=== PATIENT | male | born 1980 | race Caucasian/White ===

== ENCOUNTER 2017-12-29 20:48 | Emergency (ER) | payer OTHER ==
[2017-12-29 21:09] VITALS: BP 111/85
--- NOTE | 2017-12-29 21:21 | ER Report ---
History and Physical Time Seen By MD: 21:16 HPI/ROS CHIEF COMPLAINT: wants to check into behavioral health. HISTORY OF PRESENT ILLNESS: This is a 37 year old male. He has a history of anxiety, depression, and has been having suicidal thoughts. He also started doing some superficial cutting tonight. He has been drinking today as well. Denies drug use. Has not been admitted here previously. Has some suicidal plans , but no active thoughts of following through on them. He has been having increased problems the last week, but did not want to go into the specifics with me. Denies other medical problems. REVIEW OF SYSTEMS: Respiratory: No cough, no dyspnea. Cardiovascular: No chest pain, no palpitations. Gastrointestinal: No vomiting, no abdominal pain. Genitourinary: No problems urinating. Musculoskeletal: No back pain. Allergies: Coded Allergies: banana (Verified Allergy, Severe, 12/29/17) Mouth peels avocado (Verified Allergy, Unknown, 12/29/17) latex (Verified Allergy, Unknown, 12/29/17) pineapple (Verified Allergy, Unknown, 12/29/17) Uncoded Allergies: plant protein (Allergy, Severe, ANAPHYLAXIS, 12/29/17) Reviewed Nurses Notes: Yes Constitutional Vital Sign - Last 24 Hours 12/29/17 12/29/17 12/29/17 12/29/17 21:00 21:02 21:03 21:09 Temp 98.6 Pulse 138 135 Resp 22 B/P (MAP) 115/93 (100) 115/93 111/85 (94) Pulse Ox 94 O2 Delivery Room Air 12/29/17 12/29/17 12/29/17 12/29/17 21:18 21:33 21:38 21:53 Pulse 121 124 112 125 Resp 14 14 12/29/17 12/29/17 12/29/17 12/29/17 22:08 22:13 22:58 23:13 Pulse 116 113 120 119 Resp 28 19 11 24 Pulse Ox 92 92 Physical Exam General Appearance: The patient is alert, some anxiety. No acute distress. Eyes: Pupils equal and round no injection. ENT: Normal oral mucosa. Moist mucous membranes. Neck: Neck is supple and non tender. Respiratory: Chest is non tender, lungs are clear to auscultation. Cardiac: regular rate and rhythm Musculoskeletal: Extremities have full range of motion. Skin: No rashes, has some cutting on his left arm, superficial. DIFFERENTIAL DIAGNOSIS: After history and physical exam differential diagnosis was considered for depression, anxiety, cutting and suicidal ideation. Medical Decision Making Data Points Result Diagram: 12/29/17212312/29/172123 Laboratory Hematology Test 12/29/17 21:24 12/29/17 22:56 Red Blood Count 5.83 M/uL (4.00-5.60) Mean Corpuscular Volume 90.0 fL (80.0-96.0) Mean Corpuscular Hemoglobin 31.7 pg (26.0-33.0) Mean Corpuscular Hemoglobin Concent 35.3 g/dL (32.0-36.0) Red Cell Distribution Width 12.8 % (11.5-14.5) Mean Platelet Volume 6.7 fL (7.2-11.1) Neutrophils (%) (Auto) 54.5 % (39.4-72.5) Lymphocytes (%) (Auto) 37.7 % (17.6-49.6) Monocytes (%) (Auto) 5.6 % (4.1-12.4) Eosinophils (%) (Auto) 0.9 % (0.4-6.7) Basophils (%) (Auto) 1.3 % (0.3-1.4) Nucleated RBC Relative Count (auto) 0.1 /100WBC Neutrophils # (Auto) 3.4 K/uL (2.0-7.4) Lymphocytes # (Auto) 2.3 K/uL (1.3-3.6) Monocytes # (Auto) 0.3 K/uL (0.3-1.0) Eosinophils # (Auto) 0.1 K/uL (0.0-0.5) Basophils # (Auto) 0.1 K/uL (0.0-0.1) Nucleated RBC Absolute Count (auto) 0.01 K/uL Sodium Level 146 mmol/L (137-145) Potassium Level 4.1 mmol/L (3.5-5.0) Chloride Level 107 mmol/L (98-107) Carbon Dioxide Level 23 mmol/L (22-30) Blood Urea Nitrogen 5 mg/dl (9-21) Creatinine 1.00 mg/dl (0.66-1.25) Glomerular Filtration Rate Calc > 60.0 Random Glucose 79 mg/dl (75-110) Calcium Level 9.5 mg/dl (8.4-10.2) Magnesium Level 2.0 mg/dl (1.7-2.2) Total Bilirubin 0.6 mg/dl (0.2-1.3) Aspartate Amino Transf (AST/SGOT) 28 U/L (0-35) Alanine Aminotransferase (ALT/SGPT) 41 U/L (0-56) Alkaline Phosphatase 54 U/L (0-126) Total Protein 8.3 gm/dl (6.3-8.2) Albumin 4.9 g/dl (3.5-5.0) Salicylates Level < 10 mg/L Salicylate Last Dose Date unk Acetaminophen Level < 10 ug/ml Serum Alcohol 182 mg/dl Urine Color Yellow Urine Clarity Clear Urine pH 5.0 pH (4.8-9.5) Urine Specific [place] 1.010 Urine Protein Negative mg/dL (NEGATIVE) Urine Glucose (UA) Negative mg/dL (NEGATIVE) Urine Ketones Negative mg/dL (NEGATIVE) Urine Blood Negative (NEGATIVE) Urine Nitrite Negative (NEGATIVE) Urine Bilirubin Negative (NEGATIVE) Urine Urobilinogen Negative mg/dL (0.2-1.9) Urine Leukocyte Esterase Negative (NEGATIVE) Urine RBC <1 /HPF (0-2/HPF) Urine WBC 1 /HPF (0-5/HPF) Urine Squamous Epithelial Cells None /LPF (</=FEW) Urine Bacteria Negative /HPF (NONE-FEW) Urine Mucus None /HPF (NONE-FEW) Urine Opiates Screen Negative Urine Barbiturates Screen Negative Ur Tricyclic Antidepressants Screen Negative Urine Phencyclidine Screen Negative Urine Amphetamines Screen Negative Urine Benzodiazepines Screen Negative Urine Cocaine Screen Negative Urine Cannabinoids Screen Negative Chemistry Test 12/29/17 21:24 12/29/17 22:56 White Blood Count 6.2 k/uL (4.5-11.0) Red Blood Count 5.83 M/uL (4.00-5.60) Hemoglobin 18.5 g/dL (14.0-18.0) Hematocrit 52.5 % (42.0-52.0) Mean Corpuscular Volume 90.0 fL (80.0-96.0) Mean Corpuscular Hemoglobin 31.7 pg (26.0-33.0) Mean Corpuscular Hemoglobin Concent 35.3 g/dL (32.0-36.0) Red Cell Distribution Width 12.8 % (11.5-14.5) Platelet Count 314 K/uL (150-450) Mean Platelet Volume 6.7 fL (7.2-11.1) Neutrophils (%) (Auto) 54.5 % (39.4-72.5) Lymphocytes (%) (Auto) 37.7 % (17.6-49.6) Monocytes (%) (Auto) 5.6 % (4.1-12.4) Eosinophils (%) (Auto) 0.9 % (0.4-6.7) Basophils (%) (Auto) 1.3 % (0.3-1.4) Nucleated RBC Relative Count (auto) 0.1 /100WBC Neutrophils # (Auto) 3.4 K/uL (2.0-7.4) Lymphocytes # (Auto) 2.3 K/uL (1.3-3.6) Monocytes # (Auto) 0.3 K/uL (0.3-1.0) Eosinophils # (Auto) 0.1 K/uL (0.0-0.5) Basophils # (Auto) 0.1 K/uL (0.0-0.1) Nucleated RBC Absolute Count (auto) 0.01 K/uL Glomerular Filtration Rate Calc > 60.0 Calcium Level 9.5 mg/dl (8.4-10.2) Magnesium Level 2.0 mg/dl (1.7-2.2) Total Bilirubin 0.6 mg/dl (0.2-1.3) Aspartate Amino Transf (AST/SGOT) 28 U/L (0-35) Alanine Aminotransferase (ALT/SGPT) 41 U/L (0-56) Alkaline Phosphatase 54 U/L (0-126) Total Protein 8.3 gm/dl (6.3-8.2) Albumin 4.9 g/dl (3.5-5.0) Salicylates Level < 10 mg/L Salicylate Last Dose Date unk Acetaminophen Level < 10 ug/ml Serum Alcohol 182 mg/dl Urine Color Yellow Urine Clarity Clear Urine pH 5.0 pH (4.8-9.5) Urine Specific [place] 1.010 Urine Protein Negative mg/dL (NEGATIVE) Urine Glucose (UA) Negative mg/dL (NEGATIVE) Urine Ketones Negative mg/dL (NEGATIVE) Urine Blood Negative (NEGATIVE) Urine Nitrite Negative (NEGATIVE) Urine Bilirubin Negative (NEGATIVE) Urine Urobilinogen Negative mg/dL (0.2-1.9) Urine Leukocyte Esterase Negative (NEGATIVE) Urine RBC <1 /HPF (0-2/HPF) Urine WBC 1 /HPF (0-5/HPF) Urine Squamous Epithelial Cells None /LPF (</=FEW) Urine Bacteria Negative /HPF (NONE-FEW) Urine Mucus None /HPF (NONE-FEW) Urine Opiates Screen Negative Urine Barbiturates Screen Negative Ur Tricyclic Antidepressants Screen Negative Urine Phencyclidine Screen Negative Urine Amphetamines Screen Negative Urine Benzodiazepines Screen Negative Urine Cocaine Screen Negative Urine Cannabinoids Screen Negative Toxicology Test 12/29/17 21:24 12/29/17 22:56 Salicylates Level < 10 mg/L Salicylate Last Dose Date unk Acetaminophen Level < 10 ug/ml Serum Alcohol 182 mg/dl Urine Opiates Screen Negative Urine Barbiturates Screen Negative Ur Tricyclic Antidepressants Screen Negative Urine Phencyclidine Screen Negative Urine Amphetamines Screen Negative Urine Benzodiazepines Screen Negative Urine Cocaine Screen Negative Urine Cannabinoids Screen Negative Urinalysis Test 12/29/17 22:56 Urine Color Yellow Urine Clarity Clear Urine pH 5.0 pH (4.8-9.5) Urine Specific [place] 1.010 Urine Protein Negative mg/dL (NEGATIVE) Urine Glucose (UA) Negative mg/dL (NEGATIVE) Urine Ketones Negative mg/dL (NEGATIVE) Urine Blood Negative (NEGATIVE) Urine Nitrite Negative (NEGATIVE) Urine Bilirubin Negative (NEGATIVE) Urine Urobilinogen Negative mg/dL (0.2-1.9) Urine Leukocyte Esterase Negative (NEGATIVE) Urine RBC <1 /HPF (0-2/HPF) Urine WBC 1 /HPF (0-5/HPF) Urine Squamous Epithelial Cells None /LPF (</=FEW) Urine Bacteria Negative /HPF (NONE-FEW) Urine Mucus None /HPF (NONE-FEW) ED Course/Re-evaluation ED Course Discussed with Oralia Kovacs, and will admit to behavioral health. Decision to Disposition Date: Dec 29, 2017 Decision to Disposition Time: 23:40 Depart Departure Latest Vital Signs Vital Signs Date Time Temp Pulse Resp B/P (MAP) Pulse Ox O2 Delivery O2 Flow Rate FiO2 12/29/17 23:13 119 24 92 12/29/17 21:09 111/85 (94) 12/29/17 21:02 98.6 Room Air Impression: Primary Impression: Suicidal ideation Condition: Condition Unchanged Disposition: XFER TO [facility] GROVER ZAMORANO MD Dec 29, 2017 21:21
[2017-12-29 21:32] LABS: PLATELET COUNT, AUTOMATED 314 K/uL (150-450)
[2017-12-29] MEDS ORDERED: KETOROLAC TROM 10MG TAB PO ONE (23:40)
[2017-12-30] MEDS ORDERED: ALPR-448 PO (00:17)
[2017-12-30] MEDS ORDERED: METH36TA2 PO (00:17)
[2017-12-30] MEDS ORDERED: [UNRECOGNIZED DRUG - CODE] PO (16:52)
[2017-12-30] MEDS ORDERED: ALPR-460 PO (16:55)
== END 2017-12-30 00:18 ==
LOC: ER 20:54
DX: R45.851 Suicidal ideations (principal); F32.9 Major depressive disorder, single episode, unspecified; F41.9 Anxiety disorder, unspecified
CPT/HCPCS: 36415; 80305; 80320; 80329; 81001; 82040; 82247; 82310; 82374; 82435; 82565; 82947; 83735; 84075; 84132; 84155; 84295; 84443; 84450; 84460; 84520; 85025; 99285

== ENCOUNTER 2017-12-30 | Inpatient (IN) | payer OTHER ==
[~2017-12-30] VITALS: Ht 198.1 cm; Wt 90.7 kg
[2017-12-30] MEDS ORDERED: METH36TA2 PO (00:17)
[2017-12-30] MEDS ORDERED: ALPR-448 PO (00:17)
[2017-12-30 01:00] VITALS: BP 122/84
[2017-12-30] MEDS ORDERED: MAG HYD/AL HYD/SIMETH 30ML UDC PO PRN (01:15)
[2017-12-30] MEDS ORDERED: ACETAMINOPHEN 325 MG TAB PO PRN (01:15)
[2017-12-30] MEDS ORDERED: hydrOXYzine PAMOATE 25 MG CAP PO PRN ×2 (01:15→09:55)
[2017-12-30 11:15] VITALS: BP 138/93
[2017-12-30 13:55] VITALS: BP 122/94
[2017-12-30] MEDS ORDERED: [UNRECOGNIZED DRUG - CODE] PO (16:52)
[2017-12-30] MEDS ORDERED: ALPR-460 PO (16:55)
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
--- NOTE | 2017-12-30 18:47 | DISCHARGE SUMMARY ---
DATE OF ADMISSION: December 29, 2017 DATE OF AGAINST MEDICAL ADVICE DISCHARGE: December 30, 2017 FINAL DIAGNOSES PER DSM-V 1. Generalized anxiety disorder. 2. Alcohol use disorder, moderate to severe. 3. Obstructive sleep apnea per history. 4. Rule out obsessive-compulsive disorder. 5. Rule out posttraumatic stress disorder. 6. Borderline personality traits. REASON FOR ADMISSION AND BRIEF HISTORY This is a 37-year-old male who presented to the Emergency Room having been brought in by a friend for worsening depression, anxiety, and suicidal ideation. He reports self-injurious behavior in the form of superficial cutting to his left forearm prior to admission as well as drinking alcohol. The patient was reporting a lengthy history of anxiety, depression, and previous history of attention deficit hyperactivity disorder. He has been seeing an outpatient provider, Colette Okeefe, and an individual therapist at [facility]. He had requested voluntary admission for further evaluation and treatment, although reporting that during his hospitalization, he was becoming more anxious. He reports that he has many tasks to complete at home and is requesting an against medical advice discharge. He is agreeable to following up with his outpatient provider with an appointment on upcoming Monday, January 03, 2018. He is considering alternate medication providers and is aware of outpatient resources for medical management. He is denying suicidal or homicidal ideation at time of discharge, although has not given adequate time for hospitalization benefit. The patient will be discharged against medical advice. PHYSICAL EXAMINATION Please see emergency room notes for physical exam. Vital signs at time of admission included temperature of 97.8, pulse of 100, respiratory rate 16, blood pressure 122/84, and pulse oximetry 94% on room air. Vital signs at time of discharge include temperature of 99.2, pulse of 70, blood pressure 122/94, and pulse oximetry 94%. LABORATORY DATA CBC within normal limits. RBCs elevated, 5.83. Hemoglobin 18.5. Hematocrit 52.5. MPV 6.7. Chemistry panel within normal limits. Sodium slightly elevated , 146. BUN low at 5. Total protein elevated at 8.5. Thyroid stimulating hormone is pending. Urine screen within normal limits. Toxicology including admission serum alcohol level of 182. Salicylate and acetaminophen levels less than 10. Urine screen negative for opiates, barbiturates, tricyclics, phencyclidines, amphetamines, benzodiazepine, cocaine, and cannabinoids. MENTAL STATUS EXAMINATION GENERAL APPEARANCE, BEHAVIOR, AND ATTITUDE: This is an anxious, although fairly cooperative patient at time of against medical advice discharge interview. He is denying benefit from hospitalization and is requesting to leave against medical advice. SPEECH: Slightly pressured. Regular tone and volume. MOOD: Irritable. AFFECT: Mood congruent. THOUGHT PROCESSES: Logical, goal directed. No loose associations. No flight of ideas. THOUGHT CONTENT: Free of auditory or visual hallucinations, ideas of reference , thought broadcasting, delusions, obsessions, or compulsions. The patient denies suicidal or homicidal ideation. SENSORIUM: Clear. COGNITION: Alert and oriented to person, place, time, and situation. MEMORY: Immediate, recent, and remote estimated intact. INTELLIGENCE: Average based on interview. INSIGHT AND JUDGMENT: Considered limited, requesting against medical advice discharge. TREATMENT The patient participated in individual and group therapy. Medication options were reviewed. He was administered hydroxyzine 25 mg targeting his anxiety and when taken in the evening assisted with his sleep. He is requesting against medical advice discharge with outpatient appointment set up for January 03, 2018, with [facility]. He is encouraged to follow up with medication management provider and individual psychotherapist. He is given the crisis line should symptoms worsening or for suicidal ideation. He is to abstain from alcohol and other illicit substances. He is to take his outpatient medications as prescribed. Outpatient medications will be continued including his alprazolam 0.5 mg p.o. p.r.n. and methylphenidate 36 mg p.o. q. day. These prescriptions he had prior to admission. No prescriptions will be written at time of against medical advice discharge. He is to return to the Emergency Room for worsening symptoms or suicidal or homicidal ideation. The patient again is requesting against medical advice discharge. He is encouraged to return to the facility for worsening symptoms. FRNACES
== END 2017-12-30 17:30 | disposition home or self-care (01) | DRG 880 ==
LOC: BHS
PROVIDERS: ADMIT Nurse Practitioner Psychiatric/Mental Health; ATTEND Nurse Practitioner Psychiatric/Mental Health
DX: F41.1 Generalized anxiety disorder (principal); R45.851 Suicidal ideations; G47.33 Obstructive sleep apnea (adult) (pediatric); F60.3 Borderline personality disorder; F32.9 Major depressive disorder, single episode, unspecified; F10.20 Alcohol dependence, uncomplicated; Y90.6 Blood alcohol level of 120-199 mg/100 ml; F42.9 Obsessive-compulsive disorder, unspecified; F43.10 Post-traumatic stress disorder, unspecified; Z91.5 Personal history of self-harm; Z91.19 Patient's noncompliance with other medical treatment and regimen
CPT/HCPCS: Q0177

== ENCOUNTER 2018-02-05 04:46 | Emergency (ER) | payer OTHER ==
[~2018-02-05 04:46] MED LIST: ALPR-448 PO; ALPR-460 PO; METH36TA2 PO; [UNRECOGNIZED DRUG - CODE] PO
--- NOTE | 2018-02-05 04:49 | ER Report ---
History and Physical Time Seen By MD: 04:43 HPI/ROS CHIEF COMPLAINT: Self-injurious behavior HISTORY OF PRESENT ILLNESS: 37-year-old male with obsessive-compulsive disorder. He states when he gets anxious. He does self cutting and self scratching. Tonight he became quite anxious. He has superficial scrapes and cuts to both of his forearms to his face and his chest. They are fairly significant. She was calling friends and requesting to be taken over to [place] to be admitted to behavioral health over there. Patient apparently works here in the [facility] and is involved in [employer] evaluations. Patient states he did consume alcohol tonight but denies drugs. Patient has a previous [facility] admission from 12/29/17 with a similar presentation. He apparently signed out AMA after 16 hours. Patient denies suicidal ideation to this provider. He is placed on emergency care home by police and was brought in. REVIEW OF SYSTEMS: Respiratory: No cough, no dyspnea. Cardiovascular: No chest pain, no palpitations. Gastrointestinal: No vomiting, no abdominal pain. Musculoskeletal: No back pain. Allergies: Coded Allergies: banana (Verified Allergy, Severe, 12/30/17) sluffing of epithelium in mouth shellfish derived (Verified Allergy, Severe, ANAPHYLAXIS, 12/30/17) pineapple (Verified Allergy, Mild, 12/30/17) sluffing of epithelium in mouth avocado (Verified Allergy, Unknown, 12/29/17) latex (Verified Allergy, Unknown, 12/29/17) Uncoded Allergies: plant protein (Allergy, Severe, ANAPHYLAXIS, 12/29/17) Walnuts (Allergy, Mild, 12/30/17) sluffing of epithelium in mouth Home Meds Reported Medications Lisdexamfetamine Dimesylate (VYVANSE) 20 Mg Capsule, 20 MG PO QDAY Y for SEE COMMENT, CAPSULE 02/05/18 Alprazolam 0.5 Mg Tab (ALPRAZOLAM 0.5 MG TAB) 0.5 Mg Tablet, 0.25-0.5 MG PO PRN , TAB 12/30/17 Discontinued Reported Medications Methylphenidate Hcl (METHYLPHENIDATE ER) 36 Mg Tab.er.24, 36 MG PO QDAY 12/30/17 Reviewed Nurses Notes: Yes Old Medical Records Reviewed: Yes Hx Smoking: Yes Smoking Status: Current: Every Day Smoker Exposure to Second Hand Smoke?: Yes Hx Alcohol Use: Yes Constitutional Vital Sign - Last 24 Hours 02/05/18 02/05/18 04:47 06:44 Temp 98.8 Pulse 130 129 Resp 24 20 B/P (MAP) 134/112 134/104 (114) Pulse Ox 94 92 O2 Delivery Room Air Room Air Physical Exam General Appearance: The patient is alert, has no immediate need for airway protection and no current signs of toxicity. Vital signs stable, mild tachycardia, afebrile HEENT: Pupils equal and round no injection. TMs normal, oropharynx without trauma, there are gross facial scratches from the top of the head down over the nose and to the right cheek and chin. Respiratory: Chest is non tender, lungs are clear to auscultation. There are gross scratches to the chest wall. Cardiac: regular rate and rhythm Gastrointestinal: Abdomen is soft and non tender, no masses, bowel sounds normal. Musculoskeletal: Neck: Neck is supple and non tender. Extremities have full range of motion and are non tender. There are scratches to both forearms Skin: No rashes or lesions. DIFFERENTIAL DIAGNOSIS: After history and physical exam differential diagnosis was considered for depression including functional and major depression, situational depression, medication side effect, drugs, anxiety and panic attack , self injurious behavior and alcohol abuse. Date of Report: Feb 05, 2018 Examiner: Dr. Jeff Canela Patient Detained By: Law Enforcement Date Patient Detained: Feb 05, 2018 Time Patient Detained: 04:50 Date Group Home Expires: Feb 08, 2018 Time Group Home Expires: 04:50 Legal Status: Police Hold: No Legal Status: Relationship: Single Legal Status: Residence: [facility] Resident Referral Source: patient has been receiving mental health counseling through the [facility] Data Provided By: Patient, Law Enforcement, Other Source Chief Complaint: Depression with suicidal ideation, self cutting HPI/ROS: 37-year-old male brought in by police on an emergency care home after he said pictures of his self-injurious behavior. He has superficial cuts and scratches over his face, arms and chest. Patient states that he gets acute anxiety and then has self-injurious been a beer. He's been cutting since age 13. He has a proximally 3-4 episodes per year. Most of the history and information is obtained from a previous admission approximate 4 weeks ago on 12/29/17 as a voluntary admit to behavioral health service. Patient is reluctant to disclose any further information tonight. Patient was expressing suicidal ideation to the police officers. On their arrival Emergency Medical/Psych Tx: Patient was medicated with Zyprexa 10 mg by mouth and Ativan 2 mg by mouth his tetanus status was verified is up-to-date. His history Current Dangerous Risk Assess: Current Suicide Ideation Current Risk Summary: Patient is very high risk the emergency care home will be upheld. Past Dangerous Risk Assess: Suicide Ideation-last 6mo Medical Decision Making Data Points Result Diagram: 02/05/18 0543 02/05/18 0543 Laboratory Hematology Test 02/05/18 05:43 Red Blood Count 6.14 M/uL (4.00-5.60) Mean Corpuscular Volume 89.9 fL (80.0-96.0) Mean Corpuscular Hemoglobin 31.6 pg (26.0-33.0) Mean Corpuscular Hemoglobin Concent 35.2 g/dL (32.0-36.0) Red Cell Distribution Width 13.3 % (11.5-14.5) Mean Platelet Volume 7.0 fL (7.2-11.1) Neutrophils (%) (Auto) 65.3 % (39.4-72.5) Lymphocytes (%) (Auto) 26.8 % (17.6-49.6) Monocytes (%) (Auto) 5.5 % (4.1-12.4) Eosinophils (%) (Auto) 1.6 % (0.4-6.7) Basophils (%) (Auto) 0.8 % (0.3-1.4) Nucleated RBC Relative Count (auto) 0.0 /100WBC Neutrophils # (Auto) 5.4 K/uL (2.0-7.4) Lymphocytes # (Auto) 2.2 K/uL (1.3-3.6) Monocytes # (Auto) 0.5 K/uL (0.3-1.0) Eosinophils # (Auto) 0.1 K/uL (0.0-0.5) Basophils # (Auto) 0.1 K/uL (0.0-0.1) Nucleated RBC Absolute Count (auto) 0.00 K/uL Urine Color Straw Urine Clarity Clear Urine pH 6.0 pH (4.8-9.5) Urine Specific [place] 1.004 Urine Protein Negative mg/dL (NEGATIVE) Urine Glucose (UA) Negative mg/dL (NEGATIVE) Urine Ketones Negative mg/dL (NEGATIVE) Urine Blood Negative (NEGATIVE) Urine Nitrite Negative (NEGATIVE) Urine Bilirubin Negative (NEGATIVE) Urine Urobilinogen Negative mg/dL (0.2-1.9) Urine Leukocyte Esterase Trace (NEGATIVE) Urine RBC 1 /HPF (0-2/HPF) Urine WBC 2 /HPF (0-5/HPF) Urine Squamous Epithelial Cells None /LPF (</=FEW) Urine Bacteria Negative /HPF (NONE-FEW) Urine Mucus None /HPF (NONE-FEW) Sodium Level 144 mmol/L (137-145) Potassium Level 3.7 mmol/L (3.5-5.0) Chloride Level 102 mmol/L (98-107) Carbon Dioxide Level 22 mmol/L (22-30) Blood Urea Nitrogen 6 mg/dl (9-21) Creatinine 0.90 mg/dl (0.66-1.25) Glomerular Filtration Rate Calc > 60.0 Random Glucose 96 mg/dl (75-110) Calcium Level 9.1 mg/dl (8.4-10.2) Magnesium Level 2.1 mg/dl (1.7-2.2) Total Bilirubin 0.5 mg/dl (0.2-1.3) Aspartate Amino Transf (AST/SGOT) 30 U/L (0-35) Alanine Aminotransferase (ALT/SGPT) 42 U/L (0-56) Alkaline Phosphatase 76 U/L (0-126) Total Protein 8.7 gm/dl (6.3-8.2) Albumin 5.1 g/dl (3.5-5.0) Thyroid Stimulating Hormone (TSH) 2.13 uIU/ml (0.46-4.68) Salicylates Level < 10 mg/L Salicylate Last Dose Date unk Urine Opiates Screen Negative Acetaminophen Level < 10 ug/ml Urine Barbiturates Screen Negative Ur Tricyclic Antidepressants Screen Negative Urine Phencyclidine Screen Negative Urine Amphetamines Screen Negative Urine Benzodiazepines Screen Negative Urine Cocaine Screen Negative Urine Cannabinoids Screen Negative Serum Alcohol 209 mg/dl Chemistry Test 02/05/18 05:43 White Blood Count 8.2 k/uL (4.5-11.0) Red Blood Count 6.14 M/uL (4.00-5.60) Hemoglobin 19.4 g/dL (14.0-18.0) Hematocrit 55.2 % (42.0-52.0) Mean Corpuscular Volume 89.9 fL (80.0-96.0) Mean Corpuscular Hemoglobin 31.6 pg (26.0-33.0) Mean Corpuscular Hemoglobin Concent 35.2 g/dL (32.0-36.0) Red Cell Distribution Width 13.3 % (11.5-14.5) Platelet Count 343 K/uL (150-450) Mean Platelet Volume 7.0 fL (7.2-11.1) Neutrophils (%) (Auto) 65.3 % (39.4-72.5) Lymphocytes (%) (Auto) 26.8 % (17.6-49.6) Monocytes (%) (Auto) 5.5 % (4.1-12.4) Eosinophils (%) (Auto) 1.6 % (0.4-6.7) Basophils (%) (Auto) 0.8 % (0.3-1.4) Nucleated RBC Relative Count (auto) 0.0 /100WBC Neutrophils # (Auto) 5.4 K/uL (2.0-7.4) Lymphocytes # (Auto) 2.2 K/uL (1.3-3.6) Monocytes # (Auto) 0.5 K/uL (0.3-1.0) Eosinophils # (Auto) 0.1 K/uL (0.0-0.5) Basophils # (Auto) 0.1 K/uL (0.0-0.1) Nucleated RBC Absolute Count (auto) 0.00 K/uL Urine Color Straw Urine Clarity Clear Urine pH 6.0 pH (4.8-9.5) Urine Specific [place] 1.004 Urine Protein Negative mg/dL (NEGATIVE) Urine Glucose (UA) Negative mg/dL (NEGATIVE) Urine Ketones Negative mg/dL (NEGATIVE) Urine Blood Negative (NEGATIVE) Urine Nitrite Negative (NEGATIVE) Urine Bilirubin Negative (NEGATIVE) Urine Urobilinogen Negative mg/dL (0.2-1.9) Urine Leukocyte Esterase Trace (NEGATIVE) Urine RBC 1 /HPF (0-2/HPF) Urine WBC 2 /HPF (0-5/HPF) Urine Squamous Epithelial Cells None /LPF (</=FEW) Urine Bacteria Negative /HPF (NONE-FEW) Urine Mucus None /HPF (NONE-FEW) Glomerular Filtration Rate Calc > 60.0 Calcium Level 9.1 mg/dl (8.4-10.2) Magnesium Level 2.1 mg/dl (1.7-2.2) Total Bilirubin 0.5 mg/dl (0.2-1.3) Aspartate Amino Transf (AST/SGOT) 30 U/L (0-35) Alanine Aminotransferase (ALT/SGPT) 42 U/L (0-56) Alkaline Phosphatase 76 U/L (0-126) Total Protein 8.7 gm/dl (6.3-8.2) Albumin 5.1 g/dl (3.5-5.0) Thyroid Stimulating Hormone (TSH) 2.13 uIU/ml (0.46-4.68) Salicylates Level < 10 mg/L Salicylate Last Dose Date unk Urine Opiates Screen Negative Acetaminophen Level < 10 ug/ml Urine Barbiturates Screen Negative Ur Tricyclic Antidepressants Screen Negative Urine Phencyclidine Screen Negative Urine Amphetamines Screen Negative Urine Benzodiazepines Screen Negative Urine Cocaine Screen Negative Urine Cannabinoids Screen Negative Serum Alcohol 209 mg/dl Toxicology Test 02/05/18 05:43 Salicylates Level < 10 mg/L Salicylate Last Dose Date unk Urine Opiates Screen Negative Acetaminophen Level < 10 ug/ml Urine Barbiturates Screen Negative Ur Tricyclic Antidepressants Screen Negative Urine Phencyclidine Screen Negative Urine Amphetamines Screen Negative Urine Benzodiazepines Screen Negative Urine Cocaine Screen Negative Urine Cannabinoids Screen Negative Serum Alcohol 209 mg/dl Urinalysis Test 02/05/18 05:43 Urine Color Straw Urine Clarity Clear Urine pH 6.0 pH (4.8-9.5) Urine Specific [place] 1.004 Urine Protein Negative mg/dL (NEGATIVE) Urine Glucose (UA) Negative mg/dL (NEGATIVE) Urine Ketones Negative mg/dL (NEGATIVE) Urine Blood Negative (NEGATIVE) Urine Nitrite Negative (NEGATIVE) Urine Bilirubin Negative (NEGATIVE) Urine Urobilinogen Negative mg/dL (0.2-1.9) Urine Leukocyte Esterase Trace (NEGATIVE) Urine RBC 1 /HPF (0-2/HPF) Urine WBC 2 /HPF (0-5/HPF) Urine Squamous Epithelial Cells None /LPF (</=FEW) Urine Bacteria Negative /HPF (NONE-FEW) Urine Mucus None /HPF (NONE-FEW) ED Course/Re-evaluation ED Course Patient was admitted to an examination room. H&P was done. The differential diagnoses was considered. Patient's on an emergency care home. Patient is is evaluated with diagnostic studies. He is reluctant to undergo with a diagnostic studies since he is unable to afford the supplemental laboratory studies. He was admitted approximately 4 weeks ago as a voluntary admission and he states he did not consent to the panel of diagnostic test that were performed. He states he is unable to afford the bill. He is requesting that only a CBC and chemistry be performed. He is specifically objecting to Tylenol , salicylate and a drug tox screen being performed. He is financially concerned that he will not be able to pay for his evaluation. He would like it noted in his record that he is objecting to these tests being performed. I explained that this is a standard psychiatric workup. He needs to be done to rule out potential overdose that could be life-threatening. Patient was quite agitated and anxious. He was medicated with Zyprexa 10 mg by mouth and Ativan 2 mg by mouth. 02/05/2018 6:23:15 am case was discussed with Dr. Clara Gallegos psychiatrist on- call, who accepts the patient for admission. Decision to Disposition Date: Feb 05, 2018 Decision to Disposition Time: 05:02 Depart Departure Latest Vital Signs Vital Signs Date Time Temp Pulse Resp B/P (MAP) Pulse Ox O2 Delivery O2 Flow Rate FiO2 02/05/18 06:44 129 20 134/104 (114) 92 Room Air 02/05/18 04:47 98.8 Impression: Primary Impression: Depression with suicidal ideation Additional Impressions: Self-injurious behavior Alcohol intoxication Anxiety Condition: Improved Disposition: XFER TO [facility] Problem Qualifiers Additional Impressions: Alcohol intoxication Complication of substance-induced condition: uncomplicated Qualified Codes: F10.920 - Alcohol use, unspecified with intoxication, uncomplicated JEFF CANELA DO Feb 05, 2018 04:49
[2018-02-05] MEDS ORDERED: LORazepam 1 MG TAB PO ONE (04:55)
[2018-02-05] MEDS: OLANZapine ZYDIS ODT 5MG TABDP PO ONE ×2 (04:55→04:58)
[2018-02-05 05:53] LABS: PLATELET COUNT, AUTOMATED 343 K/uL (150-450)
[2018-02-05 06:44] VITALS: BP 134/104
[2018-02-05] MEDS ORDERED: LISD20CA4 PO (09:21)
[2018-02-06] MEDS ORDERED: BUPR-472 PO (12:54)
[2018-02-06] MEDS ORDERED: LISD20CA4 PO (12:55)
[2018-02-06] MEDS ORDERED: CLON0.5T66 PO (12:55)
== END 2018-02-05 07:00 ==
LOC: ER 04:55
DX: F41.9 Anxiety disorder, unspecified (principal); F32.9 Major depressive disorder, single episode, unspecified; R45.851 Suicidal ideations; F10.920 Alcohol use, unspecified with intoxication, uncomplicated; X83.8XXA Intentional self-harm by other specified means, initial encounter; R00.0 Tachycardia, unspecified; F17.200 Nicotine dependence, unspecified, uncomplicated; F42.9 Obsessive-compulsive disorder, unspecified
CPT/HCPCS: 36415; 80305; 80320; 80329; 81001; 82040; 82247; 82310; 82374; 82435; 82565; 82947; 83735; 84075; 84132; 84155; 84295; 84443; 84450; 84460; 84520; 85025; 99285

== ENCOUNTER 2018-02-05 06:22 | Inpatient (IN) | payer OTHER ==
[~2018-02-05] VITALS: Ht 175.3 cm; Wt 88.0 kg
[2018-02-05 07:30] VITALS: BP 114/98
[2018-02-05] MEDS ORDERED: ACETAMINOPHEN 325 MG TAB PO PRN (08:45)
[2018-02-05] MEDS ORDERED: MAG HYD/AL HYD/SIMETH 30ML UDC PO PRN (08:45)
[2018-02-05] MEDS ORDERED: LORazepam 1 MG TAB PO ONE ×2 (09:00→21:10)
[2018-02-05] MEDS: MULTIVITAMINS PO SCH (09:08)
[2018-02-05] MEDS ORDERED: LISD20CA4 PO (09:21)
[2018-02-05] MEDS ORDERED: LORazepam 0.5 MG TAB PO PRN (13:15)
[2018-02-05] MEDS: buPROPion XL 150 MG TABCR PO SCH (13:29)
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
[2018-02-05] MEDS: LORazepam 1 MG TAB PO PRN (17:20)
[2018-02-05] MEDS ORDERED: BENZONATATE 100 MG CAP PO PRN (21:10)
[2018-02-05 21:28] VITALS: BP 126/90
[2018-02-06 04:31] VITALS: BP 112/77
[2018-02-06] MEDS: MULTIVITAMINS PO SCH (08:29)
[2018-02-06] MEDS: buPROPion XL 150 MG TABCR PO SCH (08:29)
[2018-02-06] MEDS: LORazepam 1 MG TAB PO PRN (09:08)
[2018-02-06] MEDS ORDERED: BUPR-472 PO (12:54)
[2018-02-06] MEDS ORDERED: LISD20CA4 PO (12:55)
[2018-02-06] MEDS ORDERED: CLON0.5T66 PO (12:55)
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
== END 2018-02-06 13:10 | disposition home or self-care (01) | DRG 880 ==
LOC: BHS 06:22
PROVIDERS: ADMIT Psychiatry & Neurology Psychiatry; ATTEND Psychiatry & Neurology Psychiatry
DX: F41.1 Generalized anxiety disorder (principal); F60.3 Borderline personality disorder; F10.10 Alcohol abuse, uncomplicated; F90.2 Attention-deficit hyperactivity disorder, combined type; F42.9 Obsessive-compulsive disorder, unspecified; S51.812A Laceration without foreign body of left forearm, initial encounter; S51.811A Laceration without foreign body of right forearm, initial encounter; S01.81XA Laceration without foreign body of other part of head, initial encounter; F43.12 Post-traumatic stress disorder, chronic; Y90.7 Blood alcohol level of 200-239 mg/100 ml; W26.8XXA Contact with other sharp object(s), not elsewhere classified, initial encounter; Z62.810 Personal history of physical and sexual abuse in childhood; Z91.5 Personal history of self-harm; Z91.040 Latex allergy status; Z91.018 Allergy to other foods; Z91.013 Allergy to seafood; Z88.8 Allergy status to other drugs, medicaments and biological substances; Z73.3 Stress, not elsewhere classified

== ENCOUNTER 2019-03-16 17:13 | Emergency (ER) | payer OTHER ==
[~2019-03-16 17:13] MED LIST changes: +BUPR-472 PO; +CLON0.5T66 PO; +LISD20CA4 PO
[2019-03-16] MEDS ORDERED: DIPH-740 PO (17:23)
--- NOTE | 2019-03-16 17:25 | ER Report ---
History and Physical Time Seen By MD: 17:21 Hx. of Stated Complaint: states right sided "cluser" headaches for 5 days. no history of migrained but gets "ice pick" headaches every now and then. has not tried otc meds. HPI/ROS CHIEF COMPLAINT: Headaches HISTORY OF PRESENT ILLNESS: This is a 38-year-old male who presents to the emergency department for headaches. Patient states over the last 5 days he's been experiencing very rapid onset and relief of headaches on the right side, will occasionally get a stabbing ice pick type of headache in the forehead. The headaches are typically rapid onset with quick resolution, no nausea or vomiting, no photophobia no rashes, no neck pain, no meningismus. No fevers or chills. No visual disturbances. REVIEW OF SYSTEMS: Constitutional: No fever, no chills. Eyes: No discharge. ENT: No sore throat. Cardiovascular: No chest pain, no palpitations. Respiratory: No cough, no shortness of breath. Gastrointestinal: No abdominal pain, no vomiting. Genitourinary: No hematuria. Musculoskeletal: No back pain. Skin: No rashes. Neurological: As above. Allergies: Coded Allergies: banana (Verified Allergy, Severe, 03/16/19) sluffing of epithelium in mouth shellfish derived (Verified Allergy, Severe, ANAPHYLAXIS, 03/16/19) pineapple (Verified Allergy, Mild, 03/16/19) sluffing of epithelium in mouth avocado (Verified Allergy, Unknown, 03/16/19) latex (Verified Allergy, Unknown, 03/16/19) Uncoded Allergies: plant protein (Allergy, Severe, ANAPHYLAXIS, 12/29/17) Walnuts (Allergy, Mild, 12/30/17) sluffing of epithelium in mouth Home Meds Active Scripts Prednisone (PREDNISONE) 20 Mg Tablet, 20 MG PO BID, #10 TAB Prov:MACIE LUJAN LABOR RELATIONS SPECIALIST-BC 03/16/19 Reported Medications Diphenhydramine Hcl (BENADRYL) 25 Mg Capsule, 100 MG PO HS, CAPSULE 03/16/19 Lisdexamfetamine Dimesylate (VYVANSE) 20 Mg Capsule, 20 MG PO QAM, CAPSULE 02/06/18 Discontinued Reported Medications Clonazepam (KLONOPIN) 0.5 Mg Tablet, 0.5 MG PO QHS, #10 TAB 02/06/18 Bupropion Hcl (WELLBUTRIN XL) 150 Mg Tab.er.24h, 150 MG PO QAM, TAB 02/06/18 Past Medical/Surgical History The patient has a past medical and surgical history of headaches, possible SVT, anxiety, asthma, herniated disks, OCD, ADD, depression. Reviewed Nurses Notes: Yes Hx Smoking: Yes Smoking Status: Current: Every Day Smoker Exposure to Second Hand Smoke?: Yes Hx Substance Use Disorder: No Hx Alcohol Use: Yes (6 DAYS AGO) Constitutional Vital Sign - Last 24 Hours 03/16/19 03/16/19 03/16/19 03/16/19 17:18 17:30 18:00 18:30 Temp 98.1 Pulse 126 112 121 109 Resp 16 B/P (MAP) 132/97 144/94 (111) 139/105 (116) 118/86 (97) Pulse Ox 93 91 92 91 O2 Delivery Room Air Physical Exam General Appearance: The patient is alert, has no immediate need for airway protection and no signs of toxicity. Eyes: Pupils equal and round no pallor or injection. EOMs intact. ENT, Mouth: Mucous membranes are moist. Respiratory: There are no retractions, lungs are clear to auscultation. Cardiovascular: Regular rate and rhythm. Gastrointestinal: Abdomen is soft and non tender, no masses, bowel sounds normal. Neurological: Alert and oriented 4. Moving all extremities. Following all commands. No focal neuro deficits. Skin: Warm and dry, no rashes. Musculoskeletal: Neck is supple non tender. Extremities are nontender, nonswollen and have full range of motion. DIFFERENTIAL DIAGNOSIS: After history and physical exam differential diagnosis was considered for headache including but not limited to subarachnoid hemorrhage, migraine headache, tension headache and infectious causes such as meningitis, pharyngitis and sinusitis. Medical Decision Making EKG/Imaging Imaging PATIENT NAME: Doc Huynh : 1980 MR: [id number] V: [id number] EXAM DATE: ORDERING PHYSICIAN: MACIE LUJAN TECHNOLOGIST: Location: [facility] Patient: Doc Huynh : 1980 Visit/Account:[id number] Date of Sevice: 03/16/2019 CT Head without contrast Indication: Headache. Comparison: None available Technique: Axial CT images were obtained through the brain from the skull base to the vertex without administration of IV contrast. Reformatted coronal and sagittal images were also obtained. One of the following dose optimization techniques was utilized in the performance of this exam: automated exposure control; adjustment of the mA and/or kV according to the patient's size; or use of an iterative reconstruction technique. Specific details can be referenced in the facility's radiology CT ex am operational policy. Findings: No evidence of mass, mass effect, or midline shift. No acute intracranial hemorrhage or acute territorial infarction. No extra-axial fluid collection or hydrocephalus. No abnormal density. The morgan/white matter differentiation appears normal. Bony structures show no fractures or lesions. The visualized paranasal sinuses and mastoid air cells are clear. IMPRESSION: 1. Negative unenhanced CT of the head. Report Dictated By: Brayden Motta at 03/16/2019 6:28 PM Report E-Signed By: Brayden Motta at 03/16/2019 6:33 PM WSN:[id number] ED Course/Re-evaluation ED Course The patient was admitted to room. A history and physical were obtained. Differential diagnoses were considered. A CT of the brain was negative for any acute intracranial pathology. Reviewed the results with the patient. Did recommend following up with [facility] next week for reevaluation and neurology. Patient had no other questions or concerns at this time and discharged home. Was also given the option of taking prednisone for the next several days, patient did not have a headache at the time of his evaluation in the emergency department. Decision to Disposition Date: Mar 16, 2019 Decision to Disposition Time: 18:51 Depart Departure Latest Vital Signs Vital Signs Date Time Temp Pulse Resp B/P (MAP) Pulse Ox O2 Delivery O2 Flow Rate FiO2 03/16/19 18:30 109 118/86 (97) 91 03/16/19 17:18 98.1 16 Room Air Impression: Primary Impression: Cluster headaches Condition: Improved Disposition: HOME OR SELF-CARE Referrals: PETE RECINOS MD,SABRA Sinclair MD New Scripts Prednisone (PREDNISONE) 20 Mg Tablet 20 MG PO BID, #10 TAB Prov: STACEYMACIE GONZALEZ LABOR RELATIONS SPECIALIST-BC 03/16/19 Patient Instructions: Cluster Headache (ED) Additional Instructions: The CT of the brain does not show any sings of bleeding or other concerning pathology. Although your headaches are rapid on and off they could be cluster headaches. I did send some steroids into [facility], if you want to try these instead of Zrytec or Claritin you can. You can try Zyrtec or Claritin to see if this will help with your symptoms. consider following up with Neurology for reevaluation. Drink plenty of water. Get plenty of rest. Return to the ED for any other concerns or worsening symptoms. Problem Qualifiers Primary Impression: Cluster headaches Headache chronicity pattern: episodic headache Intractability: not intractable Qualified Codes: G44.019 - Episodic cluster headache, not intractable MACIE LUJAN LABOR RELATIONS SPECIALIST-BC Mar 16, 2019 17:25
[2019-03-16 18:30] VITALS: BP 118/86
--- NOTE | 2019-03-16 18:36 | RADIOLOGY IMAGING REPORT ---
[place] [facility] [place] Doc Huynh : 1980 MR: [id number] V: [id number] EXAM DATE: ORDERING PHYSICIAN: MACIE LUJAN TECHNOLOGIST: [place] [facility] [place] : 1980 Visit/Account:[id number] Date of Sevice: 03/16/2019 CT Head without contrast Indication: Headache. Comparison: None available Technique: Axial CT images were obtained through the brain from the skull base to the vertex without administration of IV contrast. Reformatted coronal and sagittal images were also obtained. One of the following dose optimization techniques was utilized in the performance of this exam: autom ated exposure control; adjustment of the mA and/or kV according to the patient's size; or use of an i terative reconstruction technique. Specific details can be referenced in the facility's radiology CT exam operational policy. Findings: No evidence of mass, mass effect, or midline shift. No acute intracranial hemorrhage or acute territorial infarction. No extra-axial fluid collection or hydrocephalus. No abnormal density. The morgan/white matter differen tiation appears normal. Bony structures show no fractures or lesions. The visualized paranasal sinuses and mastoid air cells are clear. IMPRESSION: 1. Negative unenhanced CT of the head. Report Dictated By: Brayden Motta at 03/16/2019 6:28 PM Report E-Signed By: Brayden Motta at 03/16/2019 6:33 PM WSN:[id number]
[2019-03-16] MEDS ORDERED: PRED20TA6 PO (18:59)
== END 2019-03-16 19:07 | disposition home or self-care (01) ==
LOC: ER 17:20
DX: G44.019 Episodic cluster headache, not intractable (principal)
CPT/HCPCS: 70450; 99284

== ENCOUNTER → 2019-03-27 | Outpatient (CLI) | payer OTHER ==
[~2019-03-27] MED LIST changes: +DIPH-740 PO; +GADOBENATE 529MG/1ML 15ML VIAL IVP ONE; +NS(*) 0.9% 50 ML BAG 50 ML ONE; +PRED20TA6 PO
--- NOTE | 2019-03-27 10:53 | RADIOLOGY IMAGING REPORT ---
FACILITY: [facility] [place] PATIENT NAME: Doc Huynh : 1980 MR: [id number] V: [id number] EXAM DATE: ORDERING PHYSICIAN: SABRA WOOD TECHNOLOGIST: [facility] Patient: Doc Huynh : 1980 Visit/Account:[id number] Date of Sevice: 03/27/2019 EXAMINATION: MRI Brain without intravenous contrast MRI Brain with intravenous contrast MRA Head without intravenous contrast MRA Neck without and with intravenous contrast HISTORY: Right-sided headache. COMPARISON: None available. TECHNIQUE: MRI brain: Multi-planar, multi-sequence brain MRI was performed before and after IV gadolinium. MRA head: 9X-liwz-km-flight angiography was performed in the axial plane on the [place] with out IV gadolinium. MRA neck: Sagittal T1, axial T1 with fat saturation, axial 3-D [id number], axial newton fisp, and co haydee 3-D postcontrast MRA of the neck. 3-D reformats were created from the source data. Stenosis of the internal carotid arteries are calculated using NASCET criteria. CONTRAST: 15 mL of IV MultiHance FINDINGS: MRI BRAIN: Brain volume: Normal. Sagittal midline structures: Negative. Ventricles: Negative. Acute ischemic changes: None. Hemorrhage: None. Masses / edema: None. Enhancement: Negative. Peres-white: Negative. White matter: Negative. Vessels: Small developmental venous anomaly in the posterior left frontal lobe. Extra-axial: None. Calvarium / scalp: Negative. Skull base: Negative. Visualized sinuses / orbits: Negative. Visualized upper neck: Negative. MRA NECK: Aortic arch / great vessel origins: Negative. Right common carotid: Negative. Right internal carotid: Negative. Right external carotid: Negative. Left common carotid: Negative. Left internal carotid: Negative. Left external carotid: Negative. Vertebrals / basilar: Negative. MRA HEAD: Petrous carotids: Negative. Carotid siphons / bifurcations: Negative. Anterior / Posterior communicating arteries: Negative. Anterior cerebral arteries: Negative. Middle cerebral arteries: Negative. Intra-cranial vertebral arteries: Negative. Basilar artery: Negative. PICA / AICA / SCA / DRILL SHARPENER: Negative. Non-angiographic Findings: None significant. IMPRESSION: 1. Small developmental venous anomaly in the posterior left frontal lobe. Otherwise normal brain MRI without and with IV contrast. 2. Normal head and neck MRA. Report Dictated By: Blaze Burton MD at 03/27/2019 10:34 AM Report E-Signed By: Blaze Burton MD at 03/27/2019 10:48 A
--- NOTE | 2019-03-27 10:53 | RADIOLOGY IMAGING REPORT ---
FACILITY: [facility] - [place] PATIENT NAME: Doc Huynh : 1980 MR: [id number] V: [id number] EXAM DATE: ORDERING PHYSICIAN: SABRA WOOD TECHNOLOGIST: Location: [facility] Patient: Doc Huynh : 1980 Visit/Account:[id number] Date of Sevice: 03/27/2019 EXAMINATION: MRI Brain without intravenous contrast MRI Brain with intravenous contrast MRA Head without intravenous contrast MRA Neck without and with intravenous contrast HISTORY: Right-sided headache. COMPARISON: None available. TECHNIQUE: MRI brain: Multi-planar, multi-sequence brain MRI was performed before and after IV gadolinium. MRA head: 6U-lpmq-sa-flight angiography was performed in the axial plane on the [place] with out IV gadolinium. MRA neck: Sagittal T1, axial T1 with fat saturation, axial 3-D [id number], axial newton fisp, and co haydee 3-D postcontrast MRA of the neck. 3-D reformats were created from the source data. Stenosis of the internal carotid arteries are calculated using NASCET criteria. CONTRAST: 15 mL of IV MultiHance FINDINGS: MRI BRAIN: Brain volume: Normal. Sagittal midline structures: Negative. Ventricles: Negative. Acute ischemic changes: None. Hemorrhage: None. Masses / edema: None. Enhancement: Negative. Peres-white: Negative. White matter: Negative. Vessels: Small developmental venous anomaly in the posterior left frontal lobe. Extra-axial: None. Calvarium / scalp: Negative. Skull base: Negative. Visualized sinuses / orbits: Negative. Visualized upper neck: Negative. MRA NECK: Aortic arch / great vessel origins: Negative. Right common carotid: Negative. Right internal carotid: Negative. Right external carotid: Negative. Left common carotid: Negative. Left internal carotid: Negative. Left external carotid: Negative. Vertebrals / basilar: Negative. MRA HEAD: Petrous carotids: Negative. Carotid siphons / bifurcations: Negative. Anterior / Posterior communicating arteries: Negative. Anterior cerebral arteries: Negative. Middle cerebral arteries: Negative. Intra-cranial vertebral arteries: Negative. Basilar artery: Negative. PICA / AICA / SCA / AWNING INSTALLER: Negative. Non-angiographic Findings: None significant. IMPRESSION: 1. Small developmental venous anomaly in the posterior left frontal lobe. Otherwise normal brain MRI without and with IV contrast. 2. Normal head and neck MRA. Report Dictated By: Blaze Burton MD at 03/27/2019 10:34 AM Report E-Signed By: Blaze Burton MD at 03/27/2019 10:48 A
--- NOTE | 2019-03-27 10:54 | RADIOLOGY IMAGING REPORT ---
FACILITY: [facility] PATIENT NAME: Doc Huynh : 1980 MR: [id number] V: [id number] EXAM DATE: ORDERING PHYSICIAN: SABRA WOOD TECHNOLOGIST[place] [facility] [place] : 1980 Visit/Account:[id number] Date of Sevice: 03/27/2019 EXAMINATION: MRI Brain without intravenous contrast MRI Brain with intravenous contrast MRA Head without intravenous contrast MRA Neck without and with intravenous contrast HISTORY: Right-sided headache. COMPARISON: None available. TECHNIQUE: MRI brain: Multi-planar, multi-sequence brain MRI was performed before and after IV gadolinium. MRA head: 9C-fibh-lc-flight angiography was performed in the axial plane on the [place] with out IV gadolinium. MRA neck: Sagittal T1, axial T1 with fat saturation, axial 3-D [id number], axial newton fisp, and co haydee 3-D postcontrast MRA of the neck. 3-D reformats were created from the source data. Stenosis of the internal carotid arteries are calculated using NASCET criteria. CONTRAST: 15 mL of IV MultiHance FINDINGS: MRI BRAIN: Brain volume: Normal. Sagittal midline structures: Negative. Ventricles: Negative. Acute ischemic changes: None. Hemorrhage: None. Masses / edema: None. Enhancement: Negative. Peres-white: Negative. White matter: Negative. Vessels: Small developmental venous anomaly in the posterior left frontal lobe. Extra-axial: None. Calvarium / scalp: Negative. Skull base: Negative. Visualized sinuses / orbits: Negative. Visualized upper neck: Negative. MRA NECK: Aortic arch / great vessel origins: Negative. Right common carotid: Negative. Right internal carotid: Negative. Right external carotid: Negative. Left common carotid: Negative. Left internal carotid: Negative. Left external carotid: Negative. Vertebrals / basilar: Negative. MRA HEAD: Petrous carotids: Negative. Carotid siphons / bifurcations: Negative. Anterior / Posterior communicating arteries: Negative. Anterior cerebral arteries: Negative. Middle cerebral arteries: Negative. Intra-cranial vertebral arteries: Negative. Basilar artery: Negative. PICA / AICA / SCA / SENIOR HARDWARE DESIGN ENGINEER: Negative. Non-angiographic Findings: None significant. IMPRESSION: 1. Small developmental venous anomaly in the posterior left frontal lobe. Otherwise normal brain MRI without and with IV contrast. 2. Normal head and neck MRA. Report Dictated By: Blaze Burton MD at 03/27/2019 10:34 AM Report E-Signed By: Blaze Burton MD at 03/27/2019 10:48 A
== END ==
LOC: MRI 00:46
PROVIDERS: ATTEND Psychiatry & Neurology Neurology
DX: R93.0 Abnormal findings on diagnostic imaging of skull and head, not elsewhere classified (principal)
CPT/HCPCS: 70544; 70549; 70553; A9577; J7050